=== PATIENT | female | born 1940 | race Caucasian/White ===

== ENCOUNTER → 2017-03-06 | Outpatient (CLI) | payer MEDICARE, MEDICAID ==
[~2017-03-06] MED LIST: ATENOLOL25 M1 PO; CLARITIN REDITA10 MG PO; DURAGESIC 50MC50 MCG TD; ENDOCET 650 MG-1 TAB PO; LEVAQUIN500 MG PO; LEVOTHYROXINE0.1 M2 PO; NEXIUM40 MG PO; PRAVASTATIN 40M40 MG PO; PROMETHAZINE HC25 M1 PO
--- NOTE | 2017-03-06 13:25 | RADIOLOGY REPORT PS360 ---
CT ABD PELVIS W/WO CONTRAST COMPARISON: CT scan abdomen pelvis with IV and oral contrast 01/12/2014 HISTORY: Patient with known lymphoma, lower abdominal pain TECHNIQUE: Multiaxial scans obtained from hemidiaphragms the pelvic floor. Precontrast scans were performed following the repeat scans after injection of IV contrast, oral contrast was given previously. FINDINGS: The lower lung renteria are clear, there is no pleural fluid. The liver is normal in size and shows mild diffuse fatty infiltration. Stomach spleen and pancreas appear normal. There has been a previous cholecystectomy. The adrenal glands are normal. The kidneys are normal size and show symmetrical function, there are 2 tiny cortical cyst in the left kidney. The contrast-filled loops of small bowel appear normal. There has been previous appendectomy. There is minimal stool mixed with oral contrast and ascending and transverse colon. There is moderate stool in the descending and sigmoid colon and there is diffuse diverticulosis of the descending and sigmoid colon most prominent in the sigmoid colon. There is no definite evidence of diverticulitis. There has been a previous hysterectomy. Urinary bladder is grossly normal, there is no free fluid in the pelvis. There is no abnormal retroperitoneal or pelvic lymphadenopathy. There is moderate calcification of the abdominal aorta but there is no aneurysm. 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 There is a tiny umbilical hernia stable and unchanged from the previous exam and containing fat only. IMPRESSION: No evidence of recurrent lymphoma, mild stable diverticulosis of the descending and sigmoid colon without diverticulitis.
== END ==
LOC: RAD 10:14
DX: R10.30 Lower abdominal pain, unspecified (principal); Z85.79 Personal history of other malignant neoplasms of lymphoid, hematopoietic and related tissues
CPT/HCPCS: Q9967